=== PATIENT | male | born 1990 | race Caucasian/White ===

== ENCOUNTER 2016-05-24 12:44 | Emergency (ER) | payer OTHER ==
[2016-05-24 14:17] VITALS: BP 144/54
--- NOTE | 2016-05-24 14:50 | UC ---
Abdominal Pain Male HPI - HPI Summary HPI Summary: vomiting and diarrhea for past 2 days. Was seen at [place] [facility] yesterday, dx gastroenteritis, Rx Zofran. He is now feeling better. No further vomiting since early AM. Solid stool today. No abd cramping pain or fever. Signed in because his girlfriend signed in with same thing. No history of ulcers or colitis. Holding down water today. - History of Current Complaint Chief Complaint: UCGI Stated Complaint: VOMITING Time Seen by Provider: 05/24/16 14:36 Hx Obtained From: Patient, Family/Software Validation Engineer - Onset/Duration: Gradual Onset Timing: Constant Severity Initially: Moderate Severity Currently: Mild Location: Diffuse Radiates: No Character: Cramping - yesterday; pain gone today, just left with some muscle soreness Aggravating Factor(s):: Food Alleviating Factor(s): Nothing Associated Signs And Symptoms: Positive: Decreased Appetite, Nausea, Vomiting - resolved today, Diarrhea - resolved today. Negative: Fever, Cough, Chest Pain, Dizzy, Back Pain, Constipation, Blood in Stool, Urinary Symptoms - Risk Factors Testicular Torsion: Negative Cardiac Risk Factors: Negative - Allergies/Home Medications Allergies/Adverse Reactions: Allergies Allergy/AdvReac Type Severity Reaction Status Date / Time environmental Allergy See Comment Uncoded 04/06/16 18:45 Home Medications: Home Medications Ondansetron HCl [Zofran] 4 mg PO Q6HR PRN 05/24/16 [History Confirmed 05/24/16] PMH/Surg Hx/FS Hx/Imm Hx Endocrine History Of: Denies: Diabetes, Thyroid Disease, Hyperthyroidism, Hypothyroidism, Dyslipidemia Cardiovascular History Of: Denies: Cardiac Disorders, Hypertension, Pacemaker/ICD, Myocardial Infarction , Congestive Heart Failure, Atrial Fibrillation, Deep Vein Thrombosis, Bleeding Disorders Respiratory History Of: Reports: Asthma - A CHILD Denies: COPD, Bronchitis, Pneumonia, Pulmonary Embolism GI/ History Of: Reports: Gastroesophageal Reflux Denies: Ulcer, Gastrointestinal Bleed, Gall Bladder Disease, Kidney Stones, Diverticulitis, Renal Disease, Urosepsis Neurological History Of: Reports: Seizures - He has seizures as a child. Denies: TIA, CVA, Dementia, Migraine Psychological History Of: Denies: Anxiety, Depression, Bipolar Disorder, Schizophrenia, Post Traumatic Stress Disorder Cancer History Of: Denies: Lung Cancer, Colorectal Cancer, Breast Cancer, Prostate Cancer, Cervical Cancer Other History Of: Negative For: HIV, Hepatitis B, Hepatitis C, Anticoagulant Therapy - Surgical History Surgical History: Yes Surgery Procedure, Year, and Place: Tendon repair r hand. b/l ear tubes. R femur ramon placement - Family History Known Family History: Positive: Cardiac Disease - GM, Other - no FHx UC/crohns. Negative: Hypertension, Diabetes - Social History Occupation: Employed Full-time Lives: With Family Alcohol Use: Rare Substance Use Type: Marijuana Substance Use Comment - Amount & Last Used: occasional Smoking Status (MU): Former Smoker Type: Cigarettes Amount Used/How Often: Pt. states quit smoking at age 17. When Did the Patient Quit Smoking/Using Tobacco: 2007 - Immunization History Most Recent Influenza Vaccination: not this season Most Recent Tetanus Shot: unsure Most Recent Pneumonia Vaccination: none Review of Systems Constitutional: Negative Skin: Negative Eyes: Negative ENT: Negative Respiratory: Negative Cardiovascular: Negative Gastrointestinal: Abdominal Pain, Vomiting, Diarrhea Genitourinary: Negative Motor: Negative Neurovascular: Negative Musculoskeletal: Negative Neurological: Negative Psychological: Negative All Other Systems Reviewed And Are Negative: Yes Physical Exam Triage Information Reviewed: Yes Appearance: Well-Appearing, No Pain Distress, Well-Nourished Vital Signs: Initial Vital Signs Temp 98.8 F 05/24/16 14:10 Pulse 80 05/24/16 14:10 Resp 16 05/24/16 14:10 BP 144/54 05/24/16 14:10 Pulse Ox 99 05/24/16 14:10 Vital Signs Reviewed: Yes Eye Exam: Normal ENT Exam: Normal Neck exam: Normal Respiratory Exam: Normal Cardiovascular Exam: Normal Abdominal Exam: Normal Abdomen Description: Positive: Nontender, No Organomegaly, Soft Musculoskeletal Exam: Normal Neurological Exam: Normal Psychological Exam: Normal Skin Exam: Normal Abd Pain Male Course/Dx - Differential Dx/Clinical Impression Provider Diagnoses: gastroenteritis Discharge - Discharge Plan Condition: Stable Disposition: HOME Patient Education Materials: Gastroenteritis (ED) Referrals: Nick Eden MD [Primary Care Provider] -
== END 2016-05-24 15:04 | disposition home or self-care (01) ==
LOC: UCCORT 12:44
DX: K52.9 Noninfective gastroenteritis and colitis, unspecified (principal); Z87.891 Personal history of nicotine dependence
CPT/HCPCS: 99211; G0463

== ENCOUNTER 2016-09-16 10:50 | Emergency (ER) | payer OTHER ==
[2016-09-16 11:03] VITALS: BP 130/74
--- NOTE | 2016-09-16 11:14 | UC ---
Throat Pain/Nasal Beka HPI - HPI Summary HPI Summary: nasal congestion x 3 days , + pnd, cough, no fever, no chills woke up this morning felt nauseous , vomited 3 x , no abd pain , no diarrhea , no urinary sx - History of Current Complaint Chief Complaint: UCGI Stated Complaint: VOMITING,HEADACHE Time Seen by Provider: 09/16/16 11:00 Hx Obtained From: Patient Onset/Duration: Gradual Onset, Lasting Days - 3, Still Present Severity: Moderate Cough: Nonproductive Associated Signs & Symptoms: Positive: Nasal Discharge. Negative: Sinus Discomfort, Fever, Rash - Allergies/Home Medications Allergies/Adverse Reactions: Allergies Allergy/AdvReac Type Severity Reaction Status Date / Time environmental Allergy See Comment Uncoded 09/16/16 10:58 Home Medications: Home Medications NK [No Home Medications Reported] 09/16/16 [History Confirmed 09/16/16] PMH/Surg Hx/FS Hx/Imm Hx Endocrine History Of: Denies: Diabetes, Thyroid Disease, Hyperthyroidism, Hypothyroidism, Dyslipidemia Cardiovascular History Of: Denies: Cardiac Disorders, Hypertension, Pacemaker/ICD, Myocardial Infarction , Congestive Heart Failure, Atrial Fibrillation, Deep Vein Thrombosis, Bleeding Disorders Respiratory History Of: Reports: Asthma - A CHILD Denies: COPD, Bronchitis, Pneumonia, Pulmonary Embolism GI/ History Of: Reports: Gastroesophageal Reflux Denies: Ulcer, Gastrointestinal Bleed, Gall Bladder Disease, Kidney Stones, Diverticulitis, Renal Disease, Urosepsis Neurological History Of: Reports: Seizures - He has seizures as a child. Denies: TIA, CVA, Dementia, Migraine Psychological History Of: Denies: Anxiety, Depression, Bipolar Disorder, Schizophrenia, Post Traumatic Stress Disorder Cancer History Of: Denies: Lung Cancer, Colorectal Cancer, Breast Cancer, Prostate Cancer, Cervical Cancer Other History Of: Negative For: HIV, Hepatitis B, Hepatitis C, Anticoagulant Therapy - Surgical History Surgical History: Yes Surgery Procedure, Year, and Place: Tendon repair r hand. b/l ear tubes. R femur ramon placement - Family History Known Family History: Positive: Cardiac Disease - GM, Other - no FHx UC/crohns. Negative: Hypertension, Diabetes - Social History Alcohol Use: Rare Substance Use Type: Marijuana Substance Use Comment - Amount & Last Used: occasional Smoking Status (MU): Former Smoker Type: Cigarettes Amount Used/How Often: Pt. states quit smoking at age 17. When Did the Patient Quit Smoking/Using Tobacco: 2007 - Immunization History Most Recent Influenza Vaccination: not this season Most Recent Tetanus Shot: unsure Most Recent Pneumonia Vaccination: none Review of Systems Constitutional: Chills, Fatigue Eyes: Negative ENT: Sore Throat, Nasal Discharge Respiratory: Cough Cardiovascular: Negative Gastrointestinal: Negative All Other Systems Reviewed And Are Negative: Yes Physical Exam Triage Information Reviewed: Yes Appearance: Well-Appearing, No Pain Distress, Well-Nourished Vital Signs: Initial Vital Signs Temp 98.4 F 09/16/16 10:59 Pulse 70 09/16/16 10:59 Resp 16 09/16/16 10:59 BP 130/74 09/16/16 10:59 Pulse Ox 100 09/16/16 10:59 Vital Signs Reviewed: Yes Eyes: Positive: Conjunctiva Clear ENT: Positive: Normal ENT inspection, Hearing grossly normal, Pharyngeal erythema, Nasal congestion, Nasal drainage, TMs normal Neck: Positive: Supple, Nontender, No Lymphadenopathy Respiratory: Positive: Chest non-tender, Lungs clear, Normal breath sounds, No respiratory distress Cardiovascular: Positive: RRR, No Murmur, Pulses Normal Abdominal Exam: Normal Abdomen Description: Positive: Nontender, Soft. Negative: CVA Tenderness (R), CVA Tenderness (L), Distended, Guarding Bowel Sounds: Positive: Present Throat Pain/Nasal Course/Dx - Differential Dx/Diagnosis Provider Diagnoses: viral illness Discharge - Discharge Plan Condition: Stable Disposition: HOME Patient Education Materials: Viral Syndrome (ED) Forms: *Work Release Referrals: Nick Eden MD [Primary Care Provider] - If Needed
== END 2016-09-16 11:15 | disposition home or self-care (01) ==
LOC: UCCORT 10:50
DX: B34.9 Viral infection, unspecified (principal); J45.909 Unspecified asthma, uncomplicated; K21.9 Gastro-esophageal reflux disease without esophagitis; F12.90 Cannabis use, unspecified, uncomplicated; Z87.891 Personal history of nicotine dependence
CPT/HCPCS: 99211; G0463

== ENCOUNTER 2016-12-02 20:36 | Emergency (ER) | payer OTHER ==
--- NOTE | 2016-12-02 20:46 | UC ---
Abdominal Pain Male HPI - HPI Summary HPI Summary: 26 YEAR OLD MALE PRESENTS WITH COMPLAINS OF BILATERAL EAR PAIN. - History of Current Complaint Stated Complaint: CONGESTED,VOMITING,EAR PAIN Time Seen by Provider: 12/02/16 20:46 - Allergies/Home Medications Allergies/Adverse Reactions: Allergies Allergy/AdvReac Type Severity Reaction Status Date / Time environmental Allergy See Comment Uncoded 12/02/16 20:48 PMH/Surg Hx/FS Hx/Imm Hx Other History Of: Negative For: HIV, Hepatitis B, Hepatitis C, Anticoagulant Therapy - Surgical History Surgical History: Yes Surgery Procedure, Year, and Place: Tendon repair r hand. b/l ear tubes. R femur ramon placement - Family History Known Family History: Positive: Cardiac Disease - GM, Other - no FHx UC/crohns. Negative: Hypertension, Diabetes - Social History Alcohol Use: Rare Substance Use Type: Marijuana Substance Use Comment - Amount & Last Used: occasional Smoking Status (MU): Former Smoker Type: Cigarettes Amount Used/How Often: Pt. states quit smoking at age 17. When Did the Patient Quit Smoking/Using Tobacco: 2007 - Immunization History Most Recent Influenza Vaccination: not this season Most Recent Tetanus Shot: unsure Most Recent Pneumonia Vaccination: none Review of Systems Constitutional: Negative Skin: Negative Eyes: Negative ENT: Ear Ache Respiratory: Negative Cardiovascular: Negative Gastrointestinal: Negative Genitourinary: Negative Motor: Negative Neurovascular: Negative Musculoskeletal: Negative Neurological: Negative Psychological: Negative All Other Systems Reviewed And Are Negative: Yes Physical Exam Triage Information Reviewed: Yes Eye Exam: Normal ENT: Positive: Other: - BILATERAL OTITS EXTERNA Dental Exam: Normal Neck exam: Normal Neck: Positive: 1 Respiratory Exam: Normal Cardiovascular Exam: Normal Abdominal Exam: Normal Musculoskeletal Exam: Normal Neurological Exam: Normal Psychological Exam: Normal Skin Exam: Normal Abd Pain Male Course/Dx - Differential Dx/Clinical Impression Provider Diagnoses: BILATERAL OTITIS EXTERNA Discharge - Discharge Plan Condition: Stable Disposition: HOME Prescriptions: Neomyc/Polym/HC 1% OTIC SUSP* [Cortisporin Otic Susp 1%*] 4 drop BOTH EARS QID # 1 btl Patient Education Materials: Otitis Externa (ED) Forms: *Work Release Referrals: No Primary Care Phys,NOPCP [Medical Doctor] -
[2016-12-02 20:55] VITALS: BP 112/53
== END 2016-12-02 21:08 | disposition home or self-care (01) ==
LOC: UCCORT 20:36
DX: H60.93 Unspecified otitis externa, bilateral (principal); Z87.891 Personal history of nicotine dependence
CPT/HCPCS: 99212; G0463

== ENCOUNTER 2017-09-28 09:26 | Emergency (ER) | payer OTHER ==
[2017-09-28 09:44] VITALS: BP 133/48
--- NOTE | 2017-09-28 10:09 | UC ---
Abdominal Pain Male HPI - HPI Summary HPI Summary: Left upper quadrant abd pain starting yesterday. it has been intermittent and this morning it is worse and more consistent. He says it radiates to the umbilicus and epigastrum. He denies prior abd surgery. Denies PUD. He has had GERD intermittently. he denies smoking and alcohol. He has had diarrhea without vomiting. No melena. No fever. NO urinary symptoms. Worse with certain positions and better with pressing on it. - History of Current Complaint Chief Complaint: UCGI Stated Complaint: LFT SIDE ABD/STOMACH PAIN*2DAYS Time Seen by Provider: 09/28/17 09:51 Hx Obtained From: Patient Onset/Duration: Gradual Onset, Lasting Days Timing: Intermittent Episodes Lasting: Severity Initially: Moderate Severity Currently: Moderate Pain Intensity: 6 Location: Discrete At: LUQ, Epigastric Character: Aching, Cramping Aggravating Factor(s): Other Alleviating Factor(s): Other Associated Signs And Symptoms: Positive: Decreased Appetite, Diarrhea. Negative : Fever, Cough, Chest Pain, Blood in Stool, Urinary Symptoms, Nausea, Vomiting, Penile Discharge - Allergies/Home Medications Allergies/Adverse Reactions: Allergies Allergy/AdvReac Type Severity Reaction Status Date / Time environmental Allergy See Comment Uncoded 09/28/17 09:45 PMH/Surg Hx/FS Hx/Imm Hx Previously Healthy: No - GERD. Other History Of: Negative For: HIV, Hepatitis B, Hepatitis C, Anticoagulant Therapy - Surgical History Surgical History: Yes Surgery Procedure, Year, and Place: Tendon repair r hand. b/l ear tubes. R femur permanent ramon placement - Family History Known Family History: Positive: Cardiac Disease - GM, Other - no FHx UC/crohns. Negative: Hypertension, Diabetes - Social History Alcohol Use: None Substance Use Type: Marijuana Substance Use Comment - Amount & Last Used: occasional- last was about 09/25/17 Smoking Status (MU): Former Smoker Type: Cigarettes Amount Used/How Often: Pt. states quit smoking at age 17. When Did the Patient Quit Smoking/Using Tobacco: 2007 - Immunization History Most Recent Influenza Vaccination: NOT UTD Most Recent Tetanus Shot: unsure Most Recent Pneumonia Vaccination: none Review of Systems Gastrointestinal: Abdominal Pain, Diarrhea All Other Systems Reviewed And Are Negative: Yes Physical Exam Triage Information Reviewed: Yes Appearance: Well-Nourished, Pain Distress - Holding LUQ. Non toxic. Vital Signs: Initial Vital Signs Temp 98.3 F 09/28/17 09:33 Pulse 62 09/28/17 09:33 Resp 18 09/28/17 09:33 BP 133/48 09/28/17 09:33 Pulse Ox 98 09/28/17 09:33 Vital Signs Reviewed: Yes Eyes: Positive: Conjunctiva Clear ENT: Positive: Normal ENT inspection Neck: Positive: Supple, Nontender, No Lymphadenopathy. Negative: Nuchal Rigidity Respiratory: Positive: Lungs clear, Normal breath sounds, No respiratory distress, No accessory muscle use. Negative: Respiratory distress, Decreased breath sounds, Accessory muscle use, Crackles, Rhonchi Cardiovascular: Positive: RRR, No Murmur, Pulses Normal Abdomen Description: Positive: No Organomegaly, Soft. Negative: CVA Tenderness (R), CVA Tenderness (L), Distended, Guarding Musculoskeletal: Positive: Strength Intact, ROM Intact. Negative: No Edema Neurological: Positive: Alert, Muscle Tone Normal. Negative: Fatigued Skin: Negative: rashes Abd Pain Male Course/Dx - Course Course Of Treatment: LUQ pain without guarding or rebound. We have considered serious bacterial infection, colitis, situs inversus/appendicitis in atypical location. There is diarrhea without any signs of bleeding. he has no risk factors for PUD and he agrees to find a pcp. Lists were given. he also agrees to return for prolonged symptoms, new symptoms or any worsening symptoms. They agree. Supportive care described in detail. - Differential Dx/Clinical Impression Provider Diagnoses: abd pain. diarrhea. Discharge - Sign-Out/Discharge Documenting (check all that apply): Discharge/Admit/Transfer - Discharge Plan Condition: Good Disposition: HOME Prescriptions: Dicyclomine CAP* [Bentyl CAP*] 10 mg PO TID PRN #12 cap PRN Reason: cramping Diphenoxylat/Atrop 2.5-0.025M* [Lomotil TAB*] 1 tab PO TID #16 tab MDD 3 Ranitidine TAB (NF) [Zantac TAB (NF)] 150 mg PO BID #30 tab Patient Education Materials: Bismuth Subsalicylate (By mouth), Loperamide (By mouth), Acute Diarrhea (ED), Abdominal Pain (ED) Forms: *Work Release Referrals: Nick Eden MD [Primary Care Provider] - - Billing Disposition and Condition Condition: GOOD Disposition: HOME
== END 2017-09-28 10:09 | disposition home or self-care (01) ==
LOC: UCCORT 09:26
DX: R10.12 Left upper quadrant pain (principal); R10.13 Epigastric pain; R19.7 Diarrhea, unspecified; K21.9 Gastro-esophageal reflux disease without esophagitis; Z91.09 Other allergy status, other than to drugs and biological substances; Z79.899 Other long term (current) drug therapy; Z87.891 Personal history of nicotine dependence
CPT/HCPCS: 99212; G0463

== ENCOUNTER 2017-11-30 17:19 | Emergency (ER) | payer OTHER ==
[2017-11-30 17:58] VITALS: BP 117/51
--- NOTE | 2017-11-30 18:30 | UC ---
UC General HPI - HPI Summary HPI Summary: Pt c/o sudden onset nausea and vomiting X 1 each morning X 2 days. Pt also c/o PND and bilateral ear ache. - History of Current Complaint Chief Complaint: UCGeneralIllness Stated Complaint: VOMITING/STOMACH COMPLAINT Time Seen by Provider: 11/30/17 18:24 Hx Obtained From: Patient Onset/Duration: Sudden Onset, Lasting Days, Still Present Onset Severity: Mild Current Severity: Mild Pain Intensity: 0 Associated Signs & Symptoms: Positive: Nausea, Other - vomiting, bilateral ear ache - Allergy/Home Medications Allergies/Adverse Reactions: Allergies Allergy/AdvReac Type Severity Reaction Status Date / Time environmental Allergy See Comment Uncoded 11/30/17 17:53 PMH/Surg Hx/FS Hx/Imm Hx Previously Healthy: Yes Other History Of: Negative For: HIV, Hepatitis B, Hepatitis C, Anticoagulant Therapy - Surgical History Surgical History: Yes Surgery Procedure, Year, and Place: Tendon repair r hand. b/l ear tubes. R femur permanent ramon placement - Family History Known Family History: Positive: Cardiac Disease - GM, Other - no FHx UC/crohns. Negative: Hypertension, Diabetes - Social History Occupation: Employed Full-time Lives: With Family Alcohol Use: None Substance Use Type: Marijuana Substance Use Comment - Amount & Last Used: 0CCASIONAL Smoking Status (MU): Former Smoker Type: Cigarettes Amount Used/How Often: Pt. states quit smoking at age 17. Have You Smoked in the Last Year: Yes When Did the Patient Quit Smoking/Using Tobacco: 2007 Household Exposure Type: Cigarettes - Immunization History Most Recent Influenza Vaccination: NOT UTD Most Recent Tetanus Shot: unsure Most Recent Pneumonia Vaccination: none Review of Systems Constitutional: Fatigue Skin: Negative Eyes: Negative ENT: Ear Ache - bilateral Respiratory: Negative Cardiovascular: Negative Gastrointestinal: Vomiting, Nausea Genitourinary: Negative Motor: Negative Neurovascular: Negative Musculoskeletal: Negative Neurological: Negative Psychological: Negative Is Patient Immunocompromised?: No All Other Systems Reviewed And Are Negative: Yes Physical Exam Triage Information Reviewed: Yes Appearance: Well-Appearing Vital Signs: Initial Vital Signs Temp 98.7 F 11/30/17 17:53 Pulse 67 11/30/17 17:53 Resp 16 11/30/17 17:53 BP 117/51 11/30/17 17:53 Pulse Ox 98 11/30/17 17:53 Vital Signs Reviewed: Yes Eye Exam: Normal ENT: Positive: TM bulging Dental Exam: Normal Neck exam: Normal Respiratory Exam: Normal Cardiovascular Exam: Normal Abdomen Description: Positive: Nontender Musculoskeletal Exam: Normal Neurological Exam: Normal Psychological Exam: Normal Skin Exam: Normal Course/Dx - Differential Dx - Multi-Symptom Provider Diagnoses: bilateral ear ache. acute nausea and vomting Discharge - Sign-Out/Discharge Documenting (check all that apply): Patient Departure - Discharge Plan Condition: Stable Disposition: HOME Prescriptions: Ondansetron HCl [Zofran] 4 mg PO Q8H PRN #12 tablet PRN Reason: Nausea Patient Education Materials: Acute Nausea and Vomiting (ED), Postnasal Drip (DC ) Forms: *Work Release Referrals: Nir Encarnacion DO [Primary Care Provider] - If Needed - Billing Disposition and Condition Condition: STABLE Disposition: Home Attestation Statement User Type: Provider - I was available for consult. This patient was seen by the JEREMIAH. The patient was not presented to, seen by, or examined by me. -Jaswinder
== END 2017-11-30 18:43 | disposition home or self-care (01) ==
LOC: UCCORT 17:19
DX: R11.2 Nausea with vomiting, unspecified (principal); H92.03 Otalgia, bilateral; R06.00 Dyspnea, unspecified; Z91.09 Other allergy status, other than to drugs and biological substances
CPT/HCPCS: 99212; G0463

== ENCOUNTER 2018-12-19 17:10 | Emergency (ER) | payer OTHER ==
[2018-12-19 17:24] VITALS: BP 120/77
--- NOTE | 2018-12-19 17:48 | ED ---
Respiratory - HPI Summary HPI Summary: 28 yr old with two days of non productive cough and one day of diarrhea times two episodes. His symptoms are moderate. No fever. No vomiting. he has had nausea. He denies abdominal pain. He has need of a note for work. Denies runny nose or sore throat. - History of Current Complaint Chief Complaint: UCGeneralIllness Stated Complaint: NAUSEA/COUGH/DIARRHEA Time Seen by Provider: 12/19/18 17:28 Pain Intensity: 0 - Allergy/Home Medications Allergies/Adverse Reactions: Allergies Allergy/AdvReac Type Severity Reaction Status Date / Time environmental Allergy See Comment Uncoded 12/19/18 17:21 Home Medications: Home Medications NK [No Home Medications Reported] 12/19/18 [History Confirmed 12/19/18] PMH/Surg Hx/FS Hx/Imm Hx Endocrine/Hematology History: Denies: Hx Anticoagulant Therapy, Hx Diabetes, Hx Thyroid Disease Cardiovascular History: Denies: Hx Congestive Heart Failure, Hx Deep Vein Thrombosis, Hx Hypertension , Hx Myocardial Infarction, Hx Pacemaker/ICD Respiratory History: Reports: Hx Asthma Denies: Hx Chronic Obstructive Pulmonary Disease (COPD), Hx Lung Cancer, Hx Pneumonia, Hx Pulmonary Embolism GI History: Denies: Hx Gall Bladder Disease, Hx Gastrointestinal Bleed, Hx Ulcer, Hx Urosepsis History: Denies: Hx Kidney Stones, Hx Renal Disease Musculoskeletal History: Denies: Hx Scoliosis Neurological History: Reports: Hx Seizures - He has seizures as a child. Denies: Hx Dementia, Hx Headaches, Hx Migraine, Hx Transient Ischemic Attacks (TIA), Other Neuro Impairments/Disorders Psychiatric History: Denies: Hx Anxiety, Hx Depression, Hx Schizophrenia, Hx Bipolar Disorder - Surgical History Surgery Procedure, Year, and Place: Right Femer Compound Fracture Repaired with Mio and Right Hand Tendon Repair, 2007, [place]; Bilateral Ear Tubes Infectious Disease History: No Infectious Disease History: Denies: Hx Clostridium Difficile, Hx Hepatitis, Hx Human Immunodeficiency Virus (HIV), Hx of Known/Suspected MRSA, Hx Shingles, Hx Tuberculosis, Hx Known/ Suspected VRE, Hx Known/Suspected VRSA, History Other Infectious Disease, Traveled Outside the [place] in Last 30 Days - Family History Known Family History: Positive: Cardiac Disease - GM, Other - no FHx UC/crohns. Negative: Hypertension, Diabetes - Social History Alcohol Use: None Substance Use Type: Reports: None Substance Use Comment - Amount & Last Used: 0CCASIONAL Smoking Status (MU): Former Smoker Type: Cigarettes Amount Used/How Often: Pt. states quit smoking at age 17. Length of Time of Smoking/Using Tobacco: ~1/4 PPD x 10 Years Have You Smoked in the Last Year: Yes Review of Systems Constitutional: Negative Positive: Cough Positive: Diarrhea All Other Systems Reviewed And Are Negative: Yes Physical Exam Triage Information Reviewed: Yes Vital Signs On Initial Exam: Initial Vitals Temp Pulse Resp BP Pulse Ox 98 F 75 16 120/77 100 12/19/18 17:20 12/19/18 17:20 12/19/18 17:20 12/19/18 17:20 12/19/18 17:20 Vital Signs Reviewed: Yes Appearance: Positive: Well-Appearing, No Pain Distress Skin: Positive: Warm, Skin Color Reflects Adequate Perfusion Head/Face: Positive: Normal Head/Face Inspection Eyes: Positive: EOMI ENT: Positive: Normal ENT inspection Neck: Positive: Nontender Respiratory/Lung Sounds: Positive: Clear to Auscultation, Breath Sounds Present Cardiovascular: Positive: RRR. Negative: Murmur Abdomen Description: Positive: Nontender. Negative: Distended Musculoskeletal: Positive: Strength/ROM Intact. Negative: Edema Left, Edema Right Neurological: Positive: Sensory/Motor Intact, Alert, Oriented to Person Place, Time, CN Intact II-III Psychiatric: Positive: Normal Diagnostics - Vital Signs Vital Signs Temp Pulse Resp BP Pulse Ox 12/19/18 17:20 98 F 75 16 120/77 100 - Laboratory Lab Statement: Any lab studies that have been ordered have been reviewed, and results considered in the medical decision making process. Disposition - Course Course Of Treatment: 28 yr old with URI and gastroenteritis. DC home. NOte for work given. - Diagnoses Provider Diagnoses: Gastroenteritis, Upper respiratory infection Discharge - Sign-Out/Discharge Documenting (check all that apply): Patient Departure All imaging exams completed and their final reports reviewed: No Studies - Discharge Plan Condition: Good Disposition: HOME Patient Education Materials: Gastroenteritis (DC), Upper Respiratory Infection (ED) Forms: *Work Release Referrals: Nir Encarnacion DO [Primary Care Provider] - 2 Days - Billing Disposition and Condition Condition: GOOD Disposition: Home
== END 2018-12-19 17:47 | disposition home or self-care (01) ==
LOC: UCCORT 17:10
DX: K52.9 Noninfective gastroenteritis and colitis, unspecified (principal); J06.9 Acute upper respiratory infection, unspecified; Z86.711 Personal history of pulmonary embolism; Z87.891 Personal history of nicotine dependence
CPT/HCPCS: 99211; G0463

== ENCOUNTER 2019-01-30 18:00 | Emergency (ER) | payer OTHER ==
[2019-01-30 18:27] VITALS: BP 113/60
--- NOTE | 2019-01-30 19:40 | UC ---
Ear Complaint HPI - HPI Summary HPI Summary: 28-year-old male whose had cold symptoms for the past 3 days and bilateral earache and as well as sore throat. - History of Current Complaint Chief Complaint: UCGeneralIllness Stated Complaint: ST, EAR PAIN Time Seen by Provider: 01/30/19 19:26 Hx Obtained From: Patient Onset/Duration: Gradual Onset Severity Initially: Mild Severity Currently: Mild Pain Intensity: 2 Aggravating Factors: Nothing Alleviating Factors: Nothing Associated Signs/Symptoms: Positive: URI Symptoms - Allergies/Home Medications Allergies/Adverse Reactions: Allergies Allergy/AdvReac Type Severity Reaction Status Date / Time environmental Allergy See Comment Uncoded 01/30/19 18:27 PMH/Surg Hx/FS Hx/Imm Hx Previously Healthy: Yes Other History Of: Negative For: HIV, Hepatitis B, Hepatitis C, Anticoagulant Therapy - Surgical History Surgical History: Yes Surgery Procedure, Year, and Place: Right Femer Compound Fracture Repaired with Mio and Right Hand Tendon Repair, 2007, [place]; Bilateral Ear Tubes - Family History Known Family History: Positive: Cardiac Disease - GM, Other - no FHx UC/crohns. Negative: Hypertension, Diabetes - Social History Alcohol Use: None Substance Use Type: None Substance Use Comment - Amount & Last Used: 0CCASIONAL Smoking Status (MU): Former Smoker Type: Cigarettes Amount Used/How Often: Pt. states quit smoking at age 17. Length of Time of Smoking/Using Tobacco: ~1/4 PPD x 10 Years Have You Smoked in the Last Year: Yes When Did the Patient Quit Smoking/Using Tobacco: 2007 Household Exposure Type: Cigarettes - Immunization History Most Recent Influenza Vaccination: NOT UTD Most Recent Tetanus Shot: unsure Most Recent Pneumonia Vaccination: none Review of Systems All Other Systems Reviewed And Are Negative: Yes ENT: Positive: Sore Throat, Ear Ache, Nasal Discharge, Sinus Congestion Is Patient Immunocompromised?: No Physical Exam Triage Information Reviewed: Yes Appearance: Well-Appearing, No Pain Distress, Well-Nourished Vital Signs: Initial Vital Signs Temp 97.3 F 01/30/19 18:22 Pulse 58 01/30/19 18:22 Resp 16 01/30/19 18:22 BP 113/60 01/30/19 18:22 Pulse Ox 100 01/30/19 18:22 Vital Signs Reviewed: Yes Eyes: Positive: Conjunctiva Clear ENT: Positive: Hearing grossly normal, Pharynx normal, Nasal drainage, TM red - Right tympanic membrane is erythematous with poor landmarks and light reflex. Left tympanic membranes pearly black with [place] and light reflex although he has scarring., Uvula midline Neck: Positive: Supple, Nontender, No Lymphadenopathy Respiratory: Positive: Lungs clear, Normal breath sounds, No respiratory distress, No accessory muscle use Cardiovascular: Positive: RRR, No Murmur, Pulses Normal, Brisk Capillary Refill Musculoskeletal Exam: Normal Neurological Exam: Normal Psychological Exam: Normal Skin Exam: Normal Ear Complaint Course/Dx - Course Course Of Treatment: The patient has been comfortable here. Rapid strep test was negative. Going to treated for his right otitis media and follow-up with his primary care provider as needed. - Differential Dx/Diagnosis Provider Diagnosis: Right otitis media Discharge ED - Sign-Out/Discharge Documenting (check all that apply): Patient Departure All imaging exams completed and their final reports reviewed: No Studies - Discharge Plan Condition: Fair Disposition: HOME Prescriptions: Amoxicillin PO (*) [Amoxicillin 875 MG (*)] 875 mg PO BID 10 Days #20 tab Patient Education Materials: Ear Infection (ED) Forms: *Work Release Referrals: Nir Encarnacion DO [Primary Care Provider] - Additional Instructions: May take Tylenol or Motrin for pain. Follow-up with your primary care provider if no improvement in 4 or 5 days. - Billing Disposition and Condition Condition: FAIR Disposition: Home
== END 2019-01-30 19:46 | disposition home or self-care (01) ==
LOC: UCCORT 18:00
DX: H66.91 Otitis media, unspecified, right ear (principal); Z87.891 Personal history of nicotine dependence
CPT/HCPCS: 87651; 99212; G0463

== ENCOUNTER 2019-03-01 10:36 | Emergency (ER) | payer OTHER ==
--- NOTE | 2019-03-01 10:43 | UC ---
Throat Pain/Nasal Bek[place] HPI - HPI Summary HPI Summary: 28-year-old male who has had a sore throat for about 2 and half days no other symptoms. Denies any fever or chills. He has not had any known exposure to strep. - History of Current Complaint Stated Complaint: SORE THROAT Time Seen by Provider: 03/01/19 10:36 Hx Obtained From: Patient Onset/Duration: Gradual Onset Severity: Mild Cough: Nonproductive Associated Signs & Symptoms: Positive: Negative - Allergies/Home Medications Allergies/Adverse Reactions: Allergies Allergy/AdvReac Type Severity Reaction Status Date / Time environmental Allergy See Comment Uncoded 03/01/19 10:50 Home Medications: Home Medications NK [No Home Medications Reported] 03/01/19 [History Confirmed 03/01/19] PMH/Surg Hx/FS Hx/Imm Hx Previously Healthy: Yes Respiratory History: Asthma Other History Of: Negative For: HIV, Hepatitis B, Hepatitis C, Anticoagulant Therapy - Surgical History Surgical History: Yes Surgery Procedure, Year, and Place: Right Femer Compound Fracture Repaired with Mio and Right Hand Tendon Repair, 2007, [place]; Bilateral Ear Tubes - Family History Known Family History: Positive: Cardiac Disease - GM, Other - no FHx UC/crohns. Negative: Hypertension, Diabetes - Social History Alcohol Use: None Substance Use Type: None Substance Use Comment - Amount & Last Used: 0CCASIONAL Smoking Status (MU): Former Smoker Type: Cigarettes Amount Used/How Often: Pt. states quit smoking at age 17. Length of Time of Smoking/Using Tobacco: ~1/4 PPD x 10 Years Have You Smoked in the Last Year: Yes When Did the Patient Quit Smoking/Using Tobacco: 2007 Household Exposure Type: Cigarettes - Immunization History Most Recent Influenza Vaccination: NOT UTD Most Recent Tetanus Shot: unsure Most Recent Pneumonia Vaccination: none Review of Systems All Other Systems Reviewed And Are Negative: Yes ENT: Positive: Sore Throat Respiratory: Positive: Cough - Nonproductive cough. Is Patient Immunocompromised?: No Physical Exam Triage Information Reviewed: Yes Appearance: Well-Appearing, No Pain Distress, Well-Nourished Vital Signs Reviewed: Yes Eyes: Positive: Conjunctiva Clear ENT: Positive: Hearing grossly normal, Pharynx normal, TMs normal, Uvula midline Neck: Positive: Supple, Nontender, No Lymphadenopathy Respiratory: Positive: Lungs clear, Normal breath sounds, No respiratory distress, No accessory muscle use Cardiovascular: Positive: RRR, No Murmur, Pulses Normal, Brisk Capillary Refill Musculoskeletal Exam: Normal Neurological Exam: Normal Psychological Exam: Normal Skin Exam: Normal Throat Pain/Nasal Course/Dx - Course Course Of Treatment: Rapid strep test: Negative Patient is comfortable here. He prefers to continue to work. He may try warm saltwater gargles and Motrin for pain. He is to follow-up with his primary care provider if no improvement 4-5 days. - Differential Dx/Diagnosis Provider Diagnosis: Pharyngitis Discharge ED - Sign-Out/Discharge Documenting (check all that apply): Patient Departure All imaging exams completed and their final reports reviewed: No Studies - Discharge Plan Condition: Good Disposition: HOME Patient Education Materials: Pharyngitis (ED) Referrals: Nir Encarnacion DO [Primary Care Provider] - Additional Instructions: Increase fluids, warm saltwater gargles, follow up with your primary care provider if no improvement in 4 or 5 days. - Billing Disposition and Condition Condition: GOOD Disposition: Home
[2019-03-01 10:49] VITALS: BP 143/78
== END 2019-03-01 11:06 | disposition home or self-care (01) ==
LOC: UCEAST 10:36
DX: J02.9 Acute pharyngitis, unspecified (principal); J45.909 Unspecified asthma, uncomplicated; Z91.09 Other allergy status, other than to drugs and biological substances; Z87.891 Personal history of nicotine dependence
CPT/HCPCS: 87651; 99211; G0463